=== PATIENT | male | born 1965 | race Caucasian/White ===

== ENCOUNTER → 2020-06-16 | Outpatient (CLI) | payer BC | LOC: MRI 07:08 | PROVIDERS: ATTEND Specialist | DX: M54.42 Lumbago with sciatica, left side (principal) | CPT/HCPCS: 72148 ==

== ENCOUNTER 2020-06-19 08:18 | Observation (INO) | payer BC ==
[2020-06-18 14:24] LABS: BASOPHILS % 0.2 % (0.0-1.0); EOSINOPHILS % 0.2 % (0.0-6.0); HEMATOCRIT 43.8 % (38.2-49.6); HEMOGLOBIN 14.4 g/dL (14.0-18.0); LYMPHOCYTES % 10.6 % (18.0-39.1); MEAN CORPUSCULAR HEMOGLOBIN 27.1 pg (28-32); MEAN CORPUSCULAR HGB CONC 32.9 g/dL (31-35); MEAN CORPUSCULAR VOLUME 82.5 fL (81-99); MONOCYTES # (AUTO) 1.1 (0.2-0.8); NEUTROPHILS # (AUTO) 7.6 (2.1-6.9); NEUTROPHILS % 77.5 % (38.7-80.0); PLATELET COUNT 277 x10e3/uL (140-360); RED BLOOD COUNT 5.31 x10e6/uL (4.3-5.7); RED CELL DISTRIBUTION WIDTH 13.9 % (11.7-14.4)
[2020-06-18 14:38] LABS: INR 0.86; PROTHROMBIN TIME 12.3 seconds (11.9-14.5)
[2020-06-18 14:39] LABS: PARTIAL THROMBOPLASTIN TIME 25.6 seconds (23.8-35.5)
[2020-06-18 14:53] LABS: ANION GAP 15.6 mmol/L (8-16); CALCIUM 9.1 mg/dL (8.4-10.2); CREATININE, SERUM 1.5 mg/dL (0.72-1.25); POTASSIUM 3.6 mmol/L (3.5-5.1)
[~2020-06-19] VITALS: Ht 177.8 cm; Wt 87.1 kg
[~2020-06-19 08:18] MED LIST: ACETAMINOPHEN 1000 MG/100 ML 100 ML IV ONE; IBUPROFEN 800MG/ 200ML 200 ML IV ONE; LIDOCAINE HCL (LTA) 4 ML SOLN ONE; ZESTRIL10 MG PO
[2020-06-19] MEDS ORDERED: THROMBIN FOR SOLN 5,000 UNIT VIAL ONE (09:38)
[2020-06-19] MEDS ORDERED: LIDOCAINE 1% W/EPINEPHRINE 20 ML VIAL ONE (09:38)
[2020-06-19] MEDS ORDERED: VANCOMYCIN HCL 1 GM VIAL ONE (09:38)
[2020-06-19] MEDS ORDERED: LABETALOL HCL 20 ML ONE (10:53)
[2020-06-19] MEDS ORDERED: CEFAZOLIN SOD 1 GM/NS 50ML 100 ML IV ONE (11:48)
[2020-06-19] MEDS ORDERED: HYDROCODON-ACE1 EA12 PO (12:18)
[2020-06-19] MEDS ORDERED: SUGAMMADEX SODIUM 200 MG/2 ML VIAL IV ONE (12:23)
[2020-06-19] MEDS ORDERED: MORPHINE SULFATE 5 MG/ML VIAL IM PRN (12:30)
[2020-06-19] MEDS ORDERED: MAGNESIUM/ALUMINUM/SIMETHICONE 30 ML UDC PO PRN (12:30)
[2020-06-19] MEDS ORDERED: HYDROMORPHONE 2MG/ML 2 MG/ML ML IV PRN (12:30)
[2020-06-19] MEDS ORDERED: ACETAMINOPHEN 325 MG TAB PO PRN (12:30)
[2020-06-19] MEDS ORDERED: PROMETHAZINE HCL (IM) 25 MG/ML VIAL IM PRN (12:30)
[2020-06-19] MEDS: LACTATED RINGER'S 1,000 ML IV SCH ×2 (12:30→20:50)
[2020-06-19] MEDS ORDERED: ONDANSETRON HCL INJ 2MG/ML 2ML 2 MG/ML VIAL IV PRN (12:30)
[2020-06-19] MEDS ORDERED: HYDRALAZINE HCL 20 MG/ML VIAL ONE (12:33)
[2020-06-19] MEDS ORDERED: FENTANYL CITRATE/PF 100MCG/2 ML INJ ONE ×3 (12:39→13:54)
[2020-06-19] MEDS ORDERED: LIDOCAINE HCL 2% LOCAL INJ 5 ML SDV VIAL INJ ONE (12:55)
[2020-06-19] MEDS ORDERED: SEVOFLURANE INHAL SOLN 250 ML PEN BTL ONE (12:55)
[2020-06-19] MEDS ORDERED: GLYCOPYRROLATE INJ 0.2 MG/ML VIAL ONE (12:55)
[2020-06-19] MEDS ORDERED: DEXAMETHASONE SOD PHOS INJ 4 MG/ML VIAL ONE (12:55)
[2020-06-19] MEDS ORDERED: NEOSTIGMINE 1 MG/ML 10ML VIAL ONE (12:55)
[2020-06-19] MEDS ORDERED: ROCURONIUM BROMIDE 10 MG/ML 5ML VIAL IV ONE (12:55)
[2020-06-19] MEDS ORDERED: POVIDONE IODINE 0.05% 0.05 % ML PO ONE (12:55)
[2020-06-19] MEDS ORDERED: PROPOFOL IV EMULSION 10 MG/ML 20 ML VIAL ONE (12:55)
[2020-06-19] MEDS ORDERED: ONDANSETRON HCL INJ 2MG/ML 2ML 2 MG/ML VIAL ONE (12:55)
[2020-06-19] MEDS ORDERED: ATROPINE SULFATE 0.1 MG/ML 10ML SYR ONE (13:02)
[2020-06-19] MEDS ORDERED: MIDAZOLAM HCL 2 MG/2 ML VIAL ONE (13:29)
[2020-06-19 15:16] VITALS: BP 146/93
[2020-06-19] MEDS: CARISOPRODOL 350 MG TAB PO PRN (15:50)
[2020-06-19] MEDS: OXYCODONE/ACETAMINOPHEN 5-325 1 EACH TABLET PO PRN (15:50)
[2020-06-19 16:58] VITALS: BP 159/100
[2020-06-19 17:41] VITALS: BP 143/80
[2020-06-19 20:00] VITALS: BP 141/80
[2020-06-19] MEDS: CEFAZOLIN SOD 1 GM/NS 50ML 50 ML IV SCH (20:00)
[2020-06-19] MEDS ORDERED: ZOLPIDEM TARTRATE 5 MG TAB PO PRN (21:00)
[2020-06-19 21:10] VITALS: BP 141/80
[2020-06-19] MEDS ORDERED: SODIUM BICARBONATE 8.4% SYRING 50 ML ONE (22:09)
[2020-06-20] VITALS: BP 156/85
[2020-06-20 04:00] VITALS: BP 173/110
[2020-06-20] MEDS: CEFAZOLIN SOD 1 GM/NS 50ML 50 ML IV SCH ×2 (04:00→12:10)
[2020-06-20] MEDS: LACTATED RINGER'S 1,000 ML IV SCH (05:10)
[2020-06-20 08:14] VITALS: BP 173/110
[2020-06-20] MEDS: OXYCODONE/ACETAMINOPHEN 5-325 1 EACH TABLET PO PRN (08:15)
[2020-06-20] MEDS: CARISOPRODOL 350 MG TAB PO PRN (08:15)
[2020-06-20] MEDS ORDERED: LISINOPRIL 20 MG TAB PO SCH (09:00)
[2020-06-20 11:37] VITALS: BP 158/94
[2020-06-20] MEDS ORDERED: ONDANSETRON HCL 4 MG ORAL DISINTEGRATING TAB PO PRN (12:45)
== END 2020-06-20 12:48 | disposition home or self-care (01) ==
LOC: OR 08:18 → PACU V 12:48 → MED/SURG 14:48
PROVIDERS: ADMIT Neurological Surgery; ATTEND Neurological Surgery
DX: M71.38 Other bursal cyst, other site (principal); M48.062 Spinal stenosis, lumbar region with neurogenic claudication; I10 Essential (primary) hypertension; Z88.2 Allergy status to sulfonamides; Z20.822 Contact with and (suspected) exposure to COVID-19; Z01.810 Encounter for preprocedural cardiovascular examination; Z01.812 Encounter for preprocedural laboratory examination; Z01.818 Encounter for other preprocedural examination
CPT/HCPCS: 36415; 63267; 69990; 71046; 72020; 80048; 85025; 85610; 85730; 86850; 86900; 88304; 88311; 93005; G0378 ×2; J0131; J0360; J0690 ×2; J1100; J1170 ×2; J2001; J2250; J2405; J2704; J2710; J3010; J3370; U0002